=== PATIENT | male | born 1980 | race Caucasian/White ===

== ENCOUNTER 2021-12-06 04:54 | Inpatient (IN) | payer OTHER ==
[2021-12-06] VITALS (16 sets, daily range): BP systolic 122–151; BP diastolic 57–94
[~2021-12-06] VITALS: Ht 182.9 cm; Wt 77.2 kg
[2021-12-06] MEDS ORDERED: pantoprazole 40MG/NS 100ML BAG 100 ML IV ONE (05:20)
[2021-12-06] MEDS ORDERED: ondansetron/PF 4mg/2ml inj IV ONE (05:20)
[2021-12-06] MEDS ORDERED: famotidine/PF 10 mg/ml inj IV ONE (05:20)
[2021-12-06] MEDS ORDERED: normal saline 1000ml 1,000 ML IV ONE ×2 (05:20→06:25)
[2021-12-06 06:24] LABS: BASOPHILS % (AUTO) 0.6 % (0-1); EOSINOPHILS % (AUTO) 0.4 % (0-6); HEMATOCRIT 46.9 % (42.0-52.0); HEMOGLOBIN 16.2 g/dl (14.0-17.9); LYMPHOCYTES # (AUTO) 1.3 X10'3 (1.1-4.8); LYMPHOCYTES % (AUTO) 17.3 % (21-51); MEAN CORPUSCULAR HEMOGLOBIN 29.6 PG (27.0-31.0); MEAN CORPUSCULAR HGB CONC 34.4 g/dL (33.0-36.5); MEAN CORPUSCULAR VOLUME 86.1 FL (78-98); MEAN PLATELET VOLUME 8.4 FL (7.4-10.4); MONOCYTES # (AUTO) 0.5 X10'3 (0-0.9); MONOCYTES % (AUTO) 6.9 % (2-12); NEUTROPHILS # (AUTO) 5.6 X10'3 (1.8-7.7); NEUTROPHILS % (AUTO) 74.8 % (42-75); PLATELET COUNT 186 X10'3 (140-440); RED BLOOD COUNT 5.45 X10'6 (4.70-6.10); WHITE BLOOD COUNT 7.4 X10'3 (4.5-11.0)
[2021-12-06] MEDS ORDERED: morphine 4 MG/ML inj SYRINge IV ONE (06:25)
[2021-12-06] MEDS ORDERED: normal saline 1000ML IV soln IVB ONE (06:25)
[2021-12-06] MEDS ORDERED: cefotetan 2gm/isosm dext IVPB 50 ML IV ONE (06:35)
[2021-12-06 06:51] LABS: ALANINE AMINOTRANSFERASE 45 U/L (12-78); ALBUMIN 3.7 G/DL (3.4-5.0); ALKALINE PHOSPHATASE 74 IU/L (46-116); ANION GAP 6 (8-16); ASPARTATE AMINO TRANSFERASE 34 U/L (10-37); BILIRUBIN,TOTAL 0.6 MG/DL (0.1-1.0); BLOOD UREA NITROGEN 13 MG/DL (7-18); BUN/CREATININE RATIO 13.8 (5.4-32.0); C-REACTIVE PROTEIN 0.11 MG/DL (0.0-0.5); CALCIUM 8.6 MG/DL (8.5-10.1); CHLORIDE 102 MMOL/L (99-107); CREATININE 0.94 MG/DL (0.60-1.10); GLUCOSE 103 MG/DL (70-104); LIPASE 184 U/L (73-393); POTASSIUM 4.2 MMOL/L (3.5-5.1); SODIUM 136 MMOL/L (135-145); TOTAL CARBON DIOXIDE 27.9 MMOL/L (24-32); TOTAL PROTEIN 7.3 G/DL (6.4-8.2); eGFR 88 ML/MIN
[2021-12-06 06:58] LABS: CLARITY,URINE CLEAR (Clear); COLOR,URINE YELLOW (Yellow); GLUCOSE, URINE NEGATIVE (Neg); KETONES,URINE 40 mg/dl (Neg); LEUKOCYTE ESTERASE ,URINE NEGATIVE (Neg); NITRITES, URINE NEGATIVE (Neg); OCCULT BLOOD,URINE NEGATIVE (Neg); PROTEIN,URINE TRACE mg/dl (Neg); UROBILINOGEN,URINE 0.2 E.U/dL (0.2-1.0)
[2021-12-06 07:11] LABS: UA COLLECTION TYPE NON-SPECIFIED
[2021-12-06 07:12] LABS: BACTERIA,URINE NONE SEEN /HPF (Neg); MUCUS STRANDS NONE SEEN /LPF (Neg); RBC,URINE NONE SEEN /HPF (0-2); SQUAMOUS EPITHELIAL CELL,UR FEW /LPF (FEW); WBC,URINE NONE SEEN /HPF (0-4)
[2021-12-06] MEDS ORDERED: ceFOXitin 2GM-NS 100mL ADDvant 100 ML IV ONE (07:15)
[2021-12-06] MEDS ORDERED: magnesium 2GM in 50ml NS 50 ML IV PRN (07:20)
[2021-12-06] MEDS ORDERED: magnesium 4gm in 100ml NS 100 ML IV PRN (07:20)
[2021-12-06] MEDS ORDERED: ondansetron/PF 4mg/2ml inj IV PRN ×3 (07:20→15:40)
[2021-12-06] MEDS ORDERED: potassium CL 10mEq/100ml bag 100 ML IV PRN (07:20)
[2021-12-06] MEDS ORDERED: magnesium hydroxide 30ml (MOM) UD suspension PO PRN (07:20)
[2021-12-06] MEDS ORDERED: acetaminophen 325mg tablet PO PRN (07:20)
[2021-12-06] MEDS: normal saline 1000ml 1,000 ML IV SCH ×2 (07:20→19:58)
[2021-12-06] MEDS ORDERED: mag hydrox/Alum hydrox/simeth 30ml oral suspension PO PRN (07:20)
[2021-12-06] MEDS ORDERED: POTASSIUM BICARB 20meq eff tab 20 MEQ TABLET.EFF PO PRN ×2 (07:20)
[2021-12-06] MEDS: docusate sod 100mg capsule PO SCH ×3 (08:00→20:47)
[2021-12-06] MEDS: K and/or MAG REPLACEMENT MC SCH ×2 (08:00→19:52)
[2021-12-06 09:33] LABS: D-DIMER 0.41 MG/L FEU (0-0.50)
[2021-12-06] MEDS: morphine 4 MG/ML inj SYRINge IV PRN ×4 (10:02→22:06)
--- NOTE | 2021-12-06 10:09 | NUR ---
ZOSYN NOT AVAILABLE IN ER. CALLED PHARMACY AND WAITING FOR MEDICATION.
[2021-12-06] MEDS: piperacillin/tazo 4.5gm/100ml 100 ML IV SCH ×3 (10:26→23:43)
[2021-12-06] MEDS ORDERED: morphine 4 MG/ML inj SYRINge IV PRN ×3 (10:35→15:40)
[2021-12-06] MEDS ORDERED: LEVE10006 PO (14:54)
[2021-12-06] MEDS ORDERED: LEVE500T PO (14:54)
[2021-12-06] MEDS ORDERED: morphine 2 MG/ML inj. syringe IV PRN ×2 (15:40)
[2021-12-06] MEDS ORDERED: proCHLORperazine 10 MG/2 ml inj IV PRN (15:40)
[2021-12-06] MEDS ORDERED: fentaNYL/PF 50MCG/1 ML 2ML syringe IV PRN ×2 (15:40)
[2021-12-06] MEDS ORDERED: labetalol 20mg/4ml (5mg/ml) syringe IV PRN (15:40)
[2021-12-06] MEDS ORDERED: meperidine/PF 25mg/ml syringe IV PRN ×3 (15:40)
[2021-12-06] MEDS ORDERED: hydrALAZINE 20mg/ml inj. IV PRN (15:40)
[2021-12-06] MEDS ORDERED: ringers solution, lacted 1,000 ML IV SCH ×2 (15:40)
[2021-12-06] MEDS ORDERED: BUPIVAcaine/PF 2.5mg/ml (0.25%) 10ml vial ONE (15:50)
[2021-12-06] MEDS ORDERED: fentaNYL/PF 50MCG/1 ML 2ML syringe ONE (17:08)
[2021-12-06] MEDS ORDERED: propofol inj 20 ML IV ONE (17:19)
[2021-12-06] MEDS ORDERED: rocuronium 10mg/ml inj IV ONE (17:19)
[2021-12-06] MEDS ORDERED: ondansetron/PF 4mg/2ml inj ONE (17:19)
[2021-12-06] MEDS ORDERED: dexamethasone sod phosphate 4mg/ml inj. ONE (17:20)
[2021-12-06] MEDS ORDERED: labetalol 20mg/4ml (5mg/ml) syringe IV ONE (18:29)
--- NOTE | 2021-12-06 19:25 | NUR ---
I received report from Bj LABOY from the OR and will give report to Ila LABOY when I see her.
--- NOTE | 2021-12-06 19:50 | NUR ---
ALL DC CRITERIA HAS BEEN MET. VSS. DRESSINGS ARE CDI. DENIES PAIN. PATIENT REPORT GIVEN TO BENOIT PORTER. BENOIT BINGHAM PRESENT TO ACCEPT PATIENT. GRIS PRESENT WELL. NO ISSUES- TRANSFERED TO BED INDEPENDENTLY.BED LOW. CALL LIGHT PRESENT. Addendum: 12/06/21 at 2013 by Bj Rios - BENOIT LABOY Amended: Links added.
[2021-12-06] MEDS ORDERED: enoxaparin 40mg/0.4ml syringe SQ SCH (20:00)
[2021-12-06] MEDS ORDERED: levetiracetam 250mg tablet PO SCH (21:55)
[2021-12-07 02:00] VITALS: BP 106/68
[2021-12-07] MEDS: morphine 4 MG/ML inj SYRINge IV PRN (02:21)
[2021-12-07] MEDS: normal saline 1000ml 1,000 ML IV SCH (03:20)
--- NOTE | 2021-12-07 06:28 | NUR ---
Report received from BENOIT Thorpe
[2021-12-07 06:44] VITALS: BP 123/65
--- NOTE | 2021-12-07 07:02 | NUR ---
PAGER ID: [phone] MESSAGE: [phone] Jorje s/p appe with dr palacios. only has morphine for pain can i get something oral? [phone]
[2021-12-07] MEDS ORDERED: HYDROcodone/acetaminophen 5mg/325mg tablet PO PRN (07:20)
[2021-12-07 07:40] LABS: BASOPHILS % (AUTO) 0.1 % (0-1); EOSINOPHILS % (AUTO) 0 % (0-6); HEMATOCRIT 41.5 % (42.0-52.0); LYMPHOCYTES % (AUTO) 11.1 % (21-51); MEAN CORPUSCULAR HEMOGLOBIN 28.9 PG (27.0-31.0); MEAN CORPUSCULAR HGB CONC 33.6 g/dL (33.0-36.5); MEAN CORPUSCULAR VOLUME 86.1 FL (78-98); MEAN PLATELET VOLUME 8.5 FL (7.4-10.4); MONOCYTES # (AUTO) 0.7 X10'3 (0-0.9); MONOCYTES % (AUTO) 7.4 % (2-12); NEUTROPHILS # (AUTO) 7.4 X10'3 (1.8-7.7); NEUTROPHILS % (AUTO) 81.4 % (42-75); PLATELET COUNT 167 X10'3 (140-440); RED BLOOD COUNT 4.83 X10'6 (4.70-6.10); RED CELL DISTRIBUTION WIDTH 13.9 % (11.5-14.5)
[2021-12-07 07:44] LABS: D-DIMER 0.85 MG/L FEU (0-0.50)
[2021-12-07] MEDS: K and/or MAG REPLACEMENT MC SCH (08:00)
[2021-12-07] MEDS: docusate sod 100mg capsule PO SCH (08:00)
[2021-12-07 08:04] LABS: ALANINE AMINOTRANSFERASE 29 U/L (12-78); ALBUMIN 2.8 G/DL (3.4-5.0); ALBUMIN/GLOBULIN RATIO 0.8 (1.1-1.5); ALKALINE PHOSPHATASE 57 IU/L (46-116); ANION GAP 4 (8-16); ASPARTATE AMINO TRANSFERASE 21 U/L (10-37); BILIRUBIN,TOTAL 0.7 MG/DL (0.1-1.0); BLOOD UREA NITROGEN 6 MG/DL (7-18); BUN/CREATININE RATIO 5.7 (5.4-32.0); C-REACTIVE PROTEIN 11.84 MG/DL (0.0-0.5); CALCIUM 8.1 MG/DL (8.5-10.1); CHLORIDE 105 MMOL/L (99-107); CREATININE 1.06 MG/DL (0.60-1.10); GLUCOSE 110 MG/DL (70-104); MAGNESIUM 1.9 MG/DL (1.5-2.4); POTASSIUM 4.2 MMOL/L (3.5-5.1); SODIUM 138 MMOL/L (135-145); TOTAL CARBON DIOXIDE 29.5 MMOL/L (24-32); TOTAL PROTEIN 6.4 G/DL (6.4-8.2); eGFR 76 ML/MIN
[2021-12-07] MEDS: HYDROcodone/acetaminophen 10/325mg tab PO PRN ×2 (08:10→11:44)
[2021-12-07] MEDS: piperacillin/tazo 4.5gm/100ml 100 ML IV SCH (08:55)
--- NOTE | 2021-12-07 09:27 | NUR ---
PAGER ID: [phone] MESSAGE: [phone], Jorje amin helped pain from 8 to 5. Marleny [phone]
[2021-12-07] MEDS ORDERED: HYDR-3972 PO (10:13)
[2021-12-07] MEDS ORDERED: ONDA4TAB12 PO (10:13)
--- NOTE | 2021-12-07 12:09 | NUR ---
Patient discharged to shelter with officer that was present at the bedside, instructions given to both patient and [facility] to call for follow up appointment and to arrange medications. Instructed patient to not remove steri strips and to allow to fall off on their own. Patient discharged via wheelchair to keep in isolation x9 more days. 20 gauge iv removed from left ac, cannula intact no complications.
== END 2021-12-07 12:10 | DRG 341 ==
LOC: ER 04:55 → EEVIPCON 07:24 → ED HOLD 07:24 → ORTHO 4S 19:29
PROVIDERS: ADMIT Family Medicine; ATTEND Family Medicine
PROC: 0DTJ0ZZ Resection of Appendix, Open Approach (ICD-10-PCS; principal; 2021-12-06 17:28)
DX: K35.20 Acute appendicitis with generalized peritonitis, without abscess (principal); U07.1 COVID-19; F17.210 Nicotine dependence, cigarettes, uncomplicated; G40.909 Epilepsy, unspecified, not intractable, without status epilepticus; Z79.899 Other long term (current) drug therapy
CPT/HCPCS: 96361; 96374; 96375; 99285; Z7506; Z7508; 36415; 74176; 80053; 81001; 83690; 83735; 85025; 85379; 86140; 87081; A4215; A4618; A7000; C9113; G0378; J0694; J1100; J1650; J2270; J2405; J2543; J2704; J3010; J3490; J7030; J7120